=== PATIENT | male | born 1950 | race Two or more races ===

== ENCOUNTER 2025-04-19 09:00 | Inpatient (IN) | payer OTHER ==
[~2025-04-19] VITALS: Ht 190.5 cm; Wt 104.3 kg
[2025-04-19 10:27] LABS: BASO % 0.6 % (0.1-1.2); EOS # 0.40 (0.04-0.54); EOS % 4.7 % (0.7-7.0); LYMPH # 2.47 (1.18-3.74); LYMPH % 28.9 % (19.3-53.1); MEAN PLATELET VOLUME 10.00 fl (9.4-12.4); MONO # 0.49 (0.24-0.82); MONO % 5.7 % (4.7-12.5); NEUT # 5.10 (1.56-6.13); NEUT % 59.7 % (34.0-71.1); RED CELL DISTRIBUTION WIDTH 12.1 % (11.6-14.4)
[2025-04-19] MEDS ORDERED: LEVO-T25 MCG PO (10:31)
[2025-04-19] MEDS ORDERED: LOSARTAN-HCTZ1 EAC2 PO (10:31)
[2025-04-19] MEDS ORDERED: ROSUVASTATIN CA40 MG PO (10:31)
[2025-04-19] MEDS ORDERED: PEPCID AC20 MG PO (10:32)
[2025-04-19] MEDS ORDERED: SINGULAIR10 MG PO (10:32)
[2025-04-19] MEDS ORDERED: GLIMEPIRIDE2 M1 PO (10:32)
[2025-04-19] MEDS ORDERED: FARXIGA10 MG PO (10:32)
[2025-04-19 10:33] VITALS: BP 150/83
[2025-04-19 10:44] LABS: URINE APPEARANCE Clear; URINE BILIRRUBIN Negative (NEGATIVE); URINE BLOOD Negative; URINE COLOR Yellow; URINE KETONE Negative (NEGATIVE); URINE LEUKOCYTE Negative; URINE NITRATE Negative; URINE PROTEIN Negative (NEGATIVE); URINE UROBILINOGEN 0.2 E.U./dl
[2025-04-19 10:49] LABS: URINE BACTERIA 57.5 uL (0.0-1933); URINE EPITHELIAL CELLS 6.9 uL (0.0-38.8); URINE RBC 20.3 uL (0.0-20.8); URINE WBC 4.3 uL (0.0-23.2)
[2025-04-19 10:55] LABS: INR 1.03
[2025-04-19 10:56] LABS: URINE CAST 0.14 uL (0.0-1.40); URINE GLUCOSE >=1000 MG/DL (NEGATIVE)
[2025-04-19 10:59] LABS: URINE SPERM FEW
[2025-04-19 11:12] LABS: ALT/SGPT 25.0 U/L (12-78); AST/SGOT 12.0 U/L (15-37); BILIRUBIN TOTAL 1.03 mg/dL (0.3-1.2); BUN CREA RATIO 16.0 (7.0-25.0); CHOL HDL RATIO 2.2 (0-5.0); CREATININE SERUM 1.27 mg/dL (0.70-1.30); GFR 55.44; GLOBULINA 3.8 G/DL (2.4-3.5); GLUCOSE FASTING 181.0 mg/dL (65-100); HDL 66.0 mg/dl (40-60); LDL 38.0 mg/dl (0-130); OSMOLALITY SERUM 283.0 MOSM/KG (275-295); VLDL 40.0 (0-39)
[2025-04-26] MEDS ORDERED: KETOROLAC TROMETHAMINE 60 MG VIAL IM ONE (06:44)
[2025-04-26] MEDS ORDERED: LIDOCAINE HCL 1%/EPINEPHRINE 20ML VIAL IJ ONE (06:44)
[2025-04-26] MEDS ORDERED: BUPIVACAINE HCL/MPF 0.5% 30ML VIAL ONE (06:44)
[2025-04-26] MEDS ORDERED: VANCOMYCIN HCL 1,000 MG VIAL ONE (06:44)
[2025-04-26] MEDS ORDERED: TRANEXAMIC ACID 100MG/1ML (1000MG) AMPUL ONE (07:14)
[2025-04-26] MEDS ORDERED: MORPHINE SULFATE 4 MG/ML VIAL IV ONE (07:15)
[2025-04-26] MEDS ORDERED: CEFAZOLIN SODIUM 1,000 MG VIAL IV ONE (08:15)
[2025-04-26] MEDS ORDERED: MORPHINE SULFATE 4 MG/ML VIAL IV PRN (09:30)
[2025-04-26] MEDS ORDERED: ONDANSETRON HCL 2 MG/ML VIAL IV PRN (09:30)
[2025-04-26] MEDS ORDERED: OxyCODONE HCL 5 MG TABLET (ROXICODONE) PO PRN (09:30)
[2025-04-26] MEDS ORDERED: SODIUM CHLORIDE 0.45 % 1,000 ML IV SCH (09:30)
[2025-04-26] MEDS ORDERED: ACETAMINOPHEN 500 MG GEL..CAP PO SCH (12:00)
[2025-04-26 12:43] VITALS: BP 138/82; O2SAT 99
[2025-04-26] MEDS ORDERED: CEFAZOLIN SODIUM 1,000 MG VIAL IV SCH (17:00)
[2025-04-26] MEDS ORDERED: GABAPENTIN 300 MG CAPSULE PO SCH (17:00)
[2025-04-26 17:18] VITALS: BP 138/76; O2SAT 97
[2025-04-27 01:27] VITALS: BP 138/77; O2SAT 98
[2025-04-27 07:46] LABS: BASO % 0.2 % (0.1-1.2); EOS # 0.17 (0.04-0.54); EOS % 2.0 % (0.7-7.0); LYMPH # 1.16 (1.18-3.74); LYMPH % 13.7 % (19.3-53.1); MEAN PLATELET VOLUME 10.60 fl (9.4-12.4); MONO # 0.67 (0.24-0.82); MONO % 7.9 % (4.7-12.5); NEUT # 6.40 (1.56-6.13); NEUT % 75.8 % (34.0-71.1); RED CELL DISTRIBUTION WIDTH 11.9 % (11.6-14.4)
[2025-04-27 08:00] VITALS: BP 139/71; O2SAT 97
[2025-04-27] MEDS ORDERED: DUI500 PO (08:30)
[2025-04-27] MEDS ORDERED: ELIQUIS2.5 MG PO (08:30)
[2025-04-27] MEDS ORDERED: PERCOCET 5-3251 EACH PO (08:30)
[2025-04-27] MEDS ORDERED: SENNOSIDES 1 TAB TABLET PO SCH (09:00)
[2025-04-27] MEDS ORDERED: APIXABAN 2.5 MG TABLET PO SCH (09:00)
[2025-04-27] MEDS ORDERED: DEXTROSE 50 % IN WATER 0.5 G/ML DISP.SYRIN IV PRN (14:15)
[2025-04-27] MEDS ORDERED: INSULIN LISPRO 1,000 UNIT/10 ML UNITS SUBCUTANEO PRN (14:15)
[2025-04-27] MEDS ORDERED: ENALAPRILAT DIHYDRATE 1.25 MG/ML VIAL IV PRN (14:15)
[2025-04-27 16:00] VITALS: BP 155/75; O2SAT 97
[2025-04-27] MEDS ORDERED: SOD FERRIC GLUC COMPLX/SUCROSE 62.5 MG/5 ML AMPUL IV SCH (17:00)
[2025-04-27] MEDS ORDERED: Cyanocobalamin/Mecobalamin 1 TAB.SL SL SCH (17:00)
[2025-04-27] MEDS ORDERED: ROSUVASTATIN CALCIUM 20 MG TABLET PO SCH (17:00)
[2025-04-27] MEDS ORDERED: LOSARTAN/HYDROCHLOROTHIAZIDE 1 TAB TABLET PO SCH (17:00)
[2025-04-28 01:25] VITALS: BP 145/77; O2SAT 98
[2025-04-28] MEDS ORDERED: LEVOTHYROXINE SODIUM 25 MCG TABLET PO SCH (06:00)
[2025-04-28 06:56] LABS: BASO % 0.3 % (0.1-1.2); EOS # 0.15 (0.04-0.54); EOS % 1.1 % (0.7-7.0); LYMPH # 3.30 (1.18-3.74); LYMPH % 24.3 % (19.3-53.1); MEAN PLATELET VOLUME 10.60 fl (9.4-12.4); MONO # 1.53 (0.24-0.82); MONO % 11.3 % (4.7-12.5); NEUT # 8.51 (1.56-6.13); NEUT % 62.6 % (34.0-71.1); RED CELL DISTRIBUTION WIDTH 12.0 % (11.6-14.4)
[2025-04-28 08:00] VITALS: BP 142/68; O2SAT 97
[2025-04-28] MEDS ORDERED: IRON FUM,PS/FOLIC ACID/VITC/B3 1 CAP CAPSULE PO SCH (09:00)
[2025-04-28 17:59] VITALS: BP 175/77; O2SAT 96
== END 2025-04-28 17:55 | DRG 470 ==
LOC: SURH 04-26 07:00 → O/R 04-26 07:00 → SURH 04-26 09:00
PROVIDERS: ADMIT Orthopaedic Surgery; ATTEND Orthopaedic Surgery
PROC: 0MNN0ZZ Release Right Knee Bursa and Ligament, Open Approach (ICD-10-PCS; 2025-04-26)
PROC: 0QUD0JZ Supplement Right Patella with Synthetic Substitute, Open Approach (ICD-10-PCS; 2025-04-26)
PROC: 0QUD0KZ Supplement Right Patella with Nonautologous Tissue Substitute, Open Approach (ICD-10-PCS; 2025-04-26)
PROC: 0SRC0JZ Replacement of Right Knee Joint with Synthetic Substitute, Open Approach (ICD-10-PCS; principal; 2025-04-26 07:00)
DX: M17.11 Unilateral primary osteoarthritis, right knee (principal); D62 Acute posthemorrhagic anemia; Z96.653 Presence of artificial knee joint, bilateral; I10 Essential (primary) hypertension; E07.9 Disorder of thyroid, unspecified; I25.10 Atherosclerotic heart disease of native coronary artery without angina pectoris; E11.9 Type 2 diabetes mellitus without complications; M85.461 Solitary bone cyst, right tibia and fibula; S83.011A Lateral subluxation of right patella, initial encounter

== ENCOUNTER 2025-05-02 16:40 | Inpatient (IN) | payer OTHER ==
[~2025-05-02] VITALS: Ht 190.5 cm; Wt 104.3 kg
[~2025-05-02 16:40] MED LIST: DUI500 PO; ELIQUIS2.5 MG PO; FARXIGA10 MG PO; GLIMEPIRIDE2 M1 PO; LEVO-T25 MCG PO; LOSARTAN-HCTZ1 EAC2 PO; PEPCID AC20 MG PO; PERCOCET 5-3251 EACH PO; ROSUVASTATIN CA40 MG PO; SINGULAIR10 MG PO
--- NOTE | 2025-05-02 17:16 | NUR ---
SE RECIBE PACIENTE ALERTA Y ORIENTADO X3 EL CUAL REFIERE VENIR A CAUSA DE QUE DORSEY PRESENTADO MAREOS Y HEMOGLOBINA BAJA. AL MOMENTO SE REALIZA EKG, SE UBICA EN MONITOR Y SE PRESENTA A MD.
[2025-05-02] MEDS ORDERED: 0.9 % SODIUM CHLORIDE 1,000 ML IV SCH ×2 (17:30→22:00)
[2025-05-02] MEDS ORDERED: PANTOPRAZOLE SODIUM 80 MG in 0.9 % SODIUM CHLORIDE 100 ML IV SCH ×2 (17:30→22:00)
[2025-05-02] MEDS ORDERED: OCTREOTIDE ACETATE 1,250 MCG in 0.9 % SODIUM CHLORIDE 250 ML IV SCH (17:30)
--- NOTE | 2025-05-02 20:30 | NUR ---
SE ORIENTA PACIENTE SOBRE TX MEDICO Y KEYUR REFIERE ENTENDER Y ACEPTAR EL MISMO. SE PROCEDE A ERIC MUESTRAS DE LOAB Y A CANALIZAR PACIENTE BAJO MEIDDAS ASEPTICAS. RONNIE DE EDEMA Y ERITEMA.
[2025-05-02 20:35] LABS: BASO % 0.2 % (0.1-1.2); EOS # 0.10 (0.04-0.54); EOS % 0.6 % (0.7-7.0); LYMPH # 3.05 (1.18-3.74); LYMPH % 19.0 % (19.3-53.1); MEAN PLATELET VOLUME 9.70 fl (9.4-12.4); MONO # 1.09 (0.24-0.82); MONO % 6.8 % (4.7-12.5); NEUT # 11.62 (1.56-6.13); NEUT % 72.5 % (34.0-71.1); RED CELL DISTRIBUTION WIDTH 12.0 % (11.6-14.4)
[2025-05-02 20:46] LABS: ERYTHROCYTE SEDIMENTATION RATE 37 mm/hr (0-20)
[2025-05-02 20:58] LABS: ALT/SGPT 28.0 U/L (12-78); AST/SGOT 26.0 U/L (15-37); BILIRUBIN TOTAL 1.25 mg/dL (0.3-1.2); BUN CREA RATIO 36.0 (7.0-25.0); CREATININE SERUM 1.57 mg/dL (0.70-1.30); GFR 43.4; GLOBULINA 3.8 G/DL (2.4-3.5); GLUCOSE FASTING 138.0 mg/dL (65-100); OSMOLALITY SERUM 288.0 MOSM/KG (275-295)
[2025-05-02 21:03] LABS: INR 1.07
[2025-05-02] MEDS ORDERED: ONDANSETRON HCL 4 MG in 0.9 % SODIUM CHLORIDE 50 ML IV PRN (22:00)
[2025-05-02] MEDS ORDERED: CEFTRIAXONE SODIUM 2,000 MG in 0.9 % SODIUM CHLORIDE 100 ML IV ONE (22:00)
[2025-05-02] MEDS ORDERED: MORPHINE SULFATE 4 MG/ML CARTRIDGE IV ONE (23:00)
[2025-05-03] VITALS (13 sets, daily range): BP systolic 135–161; BP diastolic 58–89; O2SAT 95–100
[2025-05-03] MEDS ORDERED: CEFTRIAXONE SODIUM 2,000 MG VIAL ONE (01:56)
[2025-05-03] MEDS ORDERED: MORPHINE SULFATE 4 MG/ML CARTRIDGE IV SCH (02:00)
[2025-05-03 05:52] LABS: URINE APPEARANCE Clear; URINE BILIRRUBIN Negative (NEGATIVE); URINE BLOOD Negative; URINE COLOR Yellow; URINE KETONE Negative (NEGATIVE); URINE LEUKOCYTE Negative; URINE NITRATE Negative; URINE PROTEIN Negative (NEGATIVE); URINE UROBILINOGEN 0.2 E.U./dl
[2025-05-03 06:00] LABS: URINE BACTERIA 20.5 uL (0.0-1933); URINE RBC 74.2 uL (0.0-20.8); URINE WBC 7.9 uL (0.0-23.2)
[2025-05-03 06:25] LABS: BASO % 0.3 % (0.1-1.2); EOS # 0.08 (0.04-0.54); EOS % 0.6 % (0.7-7.0); LYMPH # 2.72 (1.18-3.74); LYMPH % 20.7 % (19.3-53.1); MEAN PLATELET VOLUME 9.90 fl (9.4-12.4); MONO # 0.96 (0.24-0.82); MONO % 7.3 % (4.7-12.5); NEUT # 9.21 (1.56-6.13); NEUT % 70.0 % (34.0-71.1); RED CELL DISTRIBUTION WIDTH 12.8 % (11.6-14.4)
[2025-05-03 06:52] LABS: INR 1.05
[2025-05-03 06:55] LABS: URINE CAST 0.00 uL (0.0-1.40); URINE EPITHELIAL CELLS 0.9 uL (0.0-38.8); URINE GLUCOSE >=1000 MG/DL (NEGATIVE)
[2025-05-03 06:58] LABS: URINE YEAST MANY /hpf
[2025-05-03] MEDS ORDERED: SOD FERRIC GLUC COMPLX/SUCROSE 62.5 MG/5 ML AMPUL IV SCH (09:39)
[2025-05-03] MEDS ORDERED: ACETAMINOPHEN 500 MG GEL..CAP PO PRN (16:15)
[2025-05-03] MEDS ORDERED: TRAMADOL HCL 50 MG TABLET PO PRN (16:15)
[2025-05-03 20:05] LABS: COVID-19 AG NEGATIVE (NEGATIVE)
[2025-05-04 02:09] VITALS: BP 154/73; O2SAT 96
[2025-05-04 06:31] LABS: BASO % 0.4 % (0.1-1.2); EOS # 0.12 (0.04-0.54); EOS % 0.9 % (0.7-7.0); LYMPH # 2.39 (1.18-3.74); LYMPH % 17.6 % (19.3-53.1); MEAN PLATELET VOLUME 9.60 fl (9.4-12.4); MONO # 1.00 (0.24-0.82); MONO % 7.4 % (4.7-12.5); NEUT # 9.79 (1.56-6.13); NEUT % 72.2 % (34.0-71.1); RED CELL DISTRIBUTION WIDTH 14.1 % (11.6-14.4)
[2025-05-04 09:33] VITALS: BP 133/68; O2SAT 100
[2025-05-04 13:55] VITALS: O2SAT 100
[2025-05-04 16:32] VITALS: O2SAT 100
[2025-05-04 19:34] VITALS: O2SAT 100
[2025-05-04 22:07] VITALS: BP 132/64
[2025-05-05] VITALS (9 sets, daily range): BP systolic 132–146; BP diastolic 74–80; O2SAT 90–100
[2025-05-05 09:36] LABS: BASO % 0.3 % (0.1-1.2); EOS # 0.09 (0.04-0.54); EOS % 0.6 % (0.7-7.0); LYMPH # 2.68 (1.18-3.74); LYMPH % 16.8 % (19.3-53.1); MEAN PLATELET VOLUME 10.20 fl (9.4-12.4); MONO # 1.07 (0.24-0.82); MONO % 6.7 % (4.7-12.5); NEUT # 11.76 (1.56-6.13); NEUT % 73.8 % (34.0-71.1); RED CELL DISTRIBUTION WIDTH 13.9 % (11.6-14.4)
[2025-05-05 11:59] LABS: ob POSITIVE (NEGATIVE)
[2025-05-05] MEDS ORDERED: TRAMADOL HCL 50 MG TABLET PO PRN (18:45)
[2025-05-06 00:13] VITALS: O2SAT 90
[2025-05-06 01:43] VITALS: BP 138/69; O2SAT 97
[2025-05-06 04:39] VITALS: O2SAT 100
[2025-05-06 06:35] LABS: BASO % 0.3 % (0.1-1.2); EOS # 0.13 (0.04-0.54); EOS % 0.9 % (0.7-7.0); LYMPH # 3.24 (1.18-3.74); LYMPH % 21.5 % (19.3-53.1); MEAN PLATELET VOLUME 9.60 fl (9.4-12.4); MONO # 1.07 (0.24-0.82); MONO % 7.1 % (4.7-12.5); NEUT # 10.30 (1.56-6.13); NEUT % 68.2 % (34.0-71.1); RED CELL DISTRIBUTION WIDTH 14.1 % (11.6-14.4)
[2025-05-06 09:14] VITALS: BP 125/63; O2SAT 95
[2025-05-06 10:33] VITALS: O2SAT 100
[2025-05-06] MEDS ORDERED: PANTOPRAZOLE SODIUM 80 MG in 0.9 % SODIUM CHLORIDE 100 ML IV SCH (11:15)
[2025-05-06] MEDS ORDERED: DIPHENHYDRAMINE HCL 50 MG/ML VIAL 1ML IV STA (15:11)
[2025-05-06] MEDS ORDERED: MIDAZOLAM HCL 2 MG/2 ML VIAL IV STA (15:12)
[2025-05-06 15:27] VITALS: BP 165/78; O2SAT 98
[2025-05-06 15:29] LABS: INR 1.07
[2025-05-06 16:03] LABS: COL ADP 65 SECONDS (56-102)
[2025-05-07] VITALS (18 sets, daily range): BP systolic 126–177; BP diastolic 57–79; O2SAT 95–100
[2025-05-07] MEDS ORDERED: CHLORHEXIDINE GLUCONATE 120 ML BOTTLE TOP ONE (09:09)
[2025-05-07 10:02] LABS: BASO % 0.3 % (0.1-1.2); EOS # 0.07 (0.04-0.54); EOS % 0.4 % (0.7-7.0); LYMPH # 2.43 (1.18-3.74); LYMPH % 15.5 % (19.3-53.1); MEAN PLATELET VOLUME 9.00 fl (9.4-12.4); MONO # 1.01 (0.24-0.82); MONO % 6.5 % (4.7-12.5); NEUT # 11.81 (1.56-6.13); NEUT % 75.4 % (34.0-71.1); RED CELL DISTRIBUTION WIDTH 14.9 % (11.6-14.4)
[2025-05-07] MEDS ORDERED: TRAMADOL HCL 50 MG TABLET PO PRN (20:30)
[2025-05-08 04:00] VITALS: BP 147/46; O2SAT 99
[2025-05-08 07:06] VITALS: BP 160/61; O2SAT 89
[2025-05-08 12:28] VITALS: BP 169/82; O2SAT 97
[2025-05-08 16:00] VITALS: BP 151/80; O2SAT 100
[2025-05-08 20:00] VITALS: BP 161/68; O2SAT 100
[2025-05-08 23:41] VITALS: BP 161/68; O2SAT 95
[2025-05-09 04:00] VITALS: BP 150/69; O2SAT 99
[2025-05-09 07:21] VITALS: BP 150/69; O2SAT 100
[2025-05-09 11:19] LABS: BASO % 0.2 % (0.1-1.2); EOS # 0.14 (0.04-0.54); EOS % 1.3 % (0.7-7.0); LYMPH # 1.61 (1.18-3.74); LYMPH % 15.1 % (19.3-53.1); MEAN PLATELET VOLUME 9.30 fl (9.4-12.4); MONO # 0.74 (0.24-0.82); MONO % 7.0 % (4.7-12.5); NEUT # 8.02 (1.56-6.13); NEUT % 75.5 % (34.0-71.1); RED CELL DISTRIBUTION WIDTH 14.8 % (11.6-14.4)
[2025-05-09 12:11] VITALS: BP 127/71; O2SAT 100
[2025-05-09 13:32] LABS: BUN CREA RATIO 13.0 (7.0-25.0); CREATININE SERUM 0.98 mg/dL (0.70-1.30); GFR 74.77; GLUCOSE FASTING 202.0 mg/dL (65-100); OSMOLALITY SERUM 282.0 MOSM/KG (275-295)
[2025-05-09 15:43] VITALS: BP 127/71; O2SAT 100
[2025-05-09 21:50] VITALS: O2SAT 99
[2025-05-10] VITALS (9 sets, daily range): BP systolic 124–156; BP diastolic 59–77; O2SAT 88–100
[2025-05-10 07:39] LABS: BASO % 0.2 % (0.1-1.2); EOS # 0.16 (0.04-0.54); EOS % 1.8 % (0.7-7.0); LYMPH # 1.32 (1.18-3.74); LYMPH % 14.6 % (19.3-53.1); MEAN PLATELET VOLUME 9.40 fl (9.4-12.4); MONO # 0.71 (0.24-0.82); MONO % 7.8 % (4.7-12.5); NEUT # 6.80 (1.56-6.13); NEUT % 75.0 % (34.0-71.1); RED CELL DISTRIBUTION WIDTH 14.5 % (11.6-14.4)
[2025-05-10] MEDS ORDERED: SUCRALFATE 1 G TABLET PO NR (20:00)
[2025-05-10] MEDS ORDERED: Cyanocobalamin/Mecobalamin 1 TAB.SL SL NR (20:00)
[2025-05-11] VITALS: BP 151/70; O2SAT 98
[2025-05-11 00:42] VITALS: O2SAT 99
[2025-05-11 03:48] VITALS: O2SAT 98
[2025-05-11] MEDS ORDERED: Cyanocobalamin/Mecobalamin 1 TAB.SL SL SCH (09:00)
[2025-05-11] MEDS ORDERED: SUCRALFATE 1 G TABLET PO SCH (09:00)
[2025-05-11 10:44] VITALS: BP 157/74; O2SAT 97
[2025-05-11 11:45] LABS: BASO % 0.2 % (0.1-1.2); EOS # 0.14 (0.04-0.54); EOS % 1.6 % (0.7-7.0); LYMPH # 1.56 (1.18-3.74); LYMPH % 18.0 % (19.3-53.1); MEAN PLATELET VOLUME 10.00 fl (9.4-12.4); MONO # 0.74 (0.24-0.82); MONO % 8.5 % (4.7-12.5); NEUT # 6.17 (1.56-6.13); NEUT % 71.2 % (34.0-71.1); RED CELL DISTRIBUTION WIDTH 14.3 % (11.6-14.4)
[2025-05-11 13:06] LABS: BASO % 0.3 % (0.1-1.2); EOS # 0.12 (0.04-0.54); EOS % 1.3 % (0.7-7.0); LYMPH # 1.59 (1.18-3.74); LYMPH % 16.8 % (19.3-53.1); MEAN PLATELET VOLUME 9.70 fl (9.4-12.4); MONO # 0.61 (0.24-0.82); MONO % 6.4 % (4.7-12.5); NEUT # 7.06 (1.56-6.13); NEUT % 74.6 % (34.0-71.1); RED CELL DISTRIBUTION WIDTH 14.5 % (11.6-14.4)
[2025-05-11 15:00] VITALS: BP 162/77; O2SAT 97
[2025-05-11] MEDS ORDERED: PROTONIX40 MG PO (18:31)
== END 2025-05-11 19:45 | disposition home or self-care (01) | DRG 812 ==
LOC: ER 16:40 → ICU-2 22:34 → MEDJ 05-03 15:30 → ICU 05-06 15:19 → SURH 05-09 18:30
PROVIDERS: General Practice; Internal Medicine; Internal Medicine Hematology & Oncology; Physician Assistant Medical; ADMIT Internal Medicine; ATTEND Internal Medicine
PROC: 30243N1 Transfusion of Nonautologous Red Blood Cells into Central Vein, Percutaneous Approach (ICD-10-PCS; 2025-05-02)
PROC: 4A12X4Z Monitoring of Cardiac Electrical Activity, External Approach (ICD-10-PCS; 2025-05-03)
PROC: 0DJ08ZZ Inspection of Upper Intestinal Tract, Via Natural or Artificial Opening Endoscopic (ICD-10-PCS; principal; 2025-05-06)
PROC: 02HV33Z Insertion of Infusion Device into Superior Vena Cava, Percutaneous Approach (ICD-10-PCS; 2025-05-09)
DX: D64.9 Anemia, unspecified (principal); N17.9 Acute kidney failure, unspecified; K92.2 Gastrointestinal hemorrhage, unspecified; K92.1 Melena; I10 Essential (primary) hypertension; E03.9 Hypothyroidism, unspecified; E11.9 Type 2 diabetes mellitus without complications; Z79.4 Long term (current) use of insulin; N28.9 Disorder of kidney and ureter, unspecified; E07.9 Disorder of thyroid, unspecified; I25.10 Atherosclerotic heart disease of native coronary artery without angina pectoris